=== PATIENT | female | born 1980 | race Caucasian/White ===

== ENCOUNTER 2022-07-29 09:22 | Emergency (ER) | payer OTHER ==
[~2022-07-29] VITALS: Ht 172.7 cm; Wt 123.2 kg
[2022-07-29] MEDS ORDERED: OXYM15SP2 (11:19)
[2022-07-29] MEDS ORDERED: BENZ200C70 PO (11:19)
[2022-07-29 11:29] VITALS: BP 142/88
== END 2022-07-29 11:32 | disposition home or self-care (01) ==
LOC: M ED 09:22
DX: J06.9 Acute upper respiratory infection, unspecified (principal)